=== PATIENT | male | born 1985 | race Caucasian/White ===

== ENCOUNTER 2024-11-05 15:00 | Emergency (ER) | payer BC, SELFPAY ==
--- OUTSIDE RECORDS SUMMARY | 2024-11-05 15:07 | XMS_ITS | Referral Summary ---
Author Organization [facility] Address [address] [place] [address] Care Team Providers Care Ic Designer Gate Arrays Name Role Phone Arturo Hendrix MD Primary Care Provider [phone] Allergies No known active allergies Medications blood glucose diagnostic (TRUE METRIX GLUCOSE TEST STRIP) strip check fingerstick daily 1 6 7 Active blood-glucose meter (TRUE METRIX GLUCOSE METER) misc check fingerstick daily 1 0 7 Active lancets (LANCETS,THIN) 28 gauge misc check fingerstick daily 1 6 7 Active hydrOXYzine (ATARAX) 25 mg tabletIndicati ons:anxiety Take 1 tablet (25 mg total) by mouth 3 (three) times a day as needed for anxiety. 90 tablet 3 7 Active lisinopril-hyd roCHLOROthiazi de (PRINZIDE,ZEST ORETIC) 20-12.5 mg per tablet TAKE 1 TABLET BY MOUTH EVERY DAY 90 tablet 1 7 Active baclofen (LIORESAL) 10 mg tablet 7 Active traZODone (DESYREL) 50 mg tabletIndicati ons:insomnia associated with depression TAKE 1 TABLET (50 MG TOTAL) BY MOUTH NIGHTLY. 30 tablet 8 Active traMADol (ULTRAM) 50 mg tabletIndicati ons:Neck pain TAKE 1 TABLET BY MOUTH 3 TIMES A DAY NEEDED FOR PAIN 60 tablet 8 Active busPIRone (BUSPAR) 10 mg tabletIndicati ons:Generalize d Anxiety Disorder TAKE 1 TABLET (10 MG TOTAL) BY MOUTH 2 (TWO) TIMES A DAY. 60 tablet 1 8 Active naproxen (NAPROSYN) 500 mg tablet Take 1 tablet (500 mg total) by mouth 2 (two) times a day with meals P.r.n. pain. Take with food. Collaborating physician Alessandro Rogers MD 20 tablet 2 Active acetaminophen- codeine (TYLENOL with CODEINE #3) 300-30 mg per tablet Take 1 tablet by mouth every 6 (six) hours as needed for pain P.r.n. pain not relieved by naproxen alone. Take with food. Collaborating physician Alessandro Rogers MD 15 tablet 2 Active pseudoephedrin e (SUDAFED) 30 mg tabletIndicati ons:Nasal Congestion Take 1 tablet (30 mg total) by mouth every 4 (four) hours as needed for congestion Collaborating physician Alessandro Rogers MD 15 tablet 2 Active HYDROcodone-ac etaminophen (NORCO) 5-325 mg per tabletIndicati ons:Pain Take 1-2 tablets by mouth every 4 (four) hours as needed for pain Do not exceed 8 tablets/day. 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 Overview (08/10/2016): Adhesive capsulitis of shoulder Sprain of shoulder and upper arm 07/31/2014 Overview (08/10/2016): Sprain of shoulder and upper arm Hypertension 04/27/2014 Overview (08/10/2016): Hypertension Adiposity 04/27/2014 Overview (08/10/2016): Obesity Hypersomnia with sleep apnea 01/09/2013 Overview (08/11/2016): Hypersomnia with sleep apnea Insomnia 01/09/2013 Overview (08/11/2016): Insomnia Obstructive sleep apnea syndrome 01/09/2013 Overview (08/12/2016): Obstructive sleep apnea syndrome Morbid obesity 01/09/2013 Overview (08/12/2016): Morbid obesity Immunizations Immunization Administration Dates Next Due Influenza, Unspecified 03/23/2017(Deferr ed: Patient Refused),05/16/2016(Deferred: Patient Refused),05/07/2016(Deferred: Patient Refused) Social History Tobacco Use Types Packs/Day Years Used Date Smoking Tobacco: Never Smokeless Tobacco: Never Alcohol Use Standard Drinks/Week Comments No 0 (1 standard drink = 0.6 oz pur e alcohol) Personal Safety Answer Date Recorded Have you ever been in or are you currently in a harmful physical or emotional relationship or is someone making you feel afraid or unsafe? 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 Gender Identity Not on file Sexual Orientation Not on file Last Filed Vital Signs Vital Sign Reading Time Taken Comments Blood Pressure 139/91 07/26/2022 3:19 PM CDT Pulse 105 07/26/2022 3:19 PM CDT Temperature 36.7 C (98 F) 07/26/2022 1:01 PM CDT Respiratory Rate 16 07/26/2022 3:19 PM CDT Oxygen Saturation 99% 07/26/2022 3:19 PM CDT Inhaled Oxygen Concentration - - Weight 108.9 kg (240 lb) 07/26/2022 1:01 PM CDT Height 188 cm (6' 2) 07/26/2022 1:01 PM CDT Body Mass Index 30.81 07/26/2022 1:01 PM CDT Plan of Treatment Not on file Insurance [facility] [employer] Care Teams Ic Designer Gate Arrays Relationship Specialty Start Date End Date [place] [address] PCP - General 08/04/16
--- OUTSIDE RECORDS SUMMARY | 2024-11-05 15:07 | XMS_ITS | Clinical Summary ---
Author Organization [facility] Address [address] [place] [address] Care Team Providers Care Junior Accountant Bookkeeper Name Role Phone Arturo Hendrix MD Primary Care Provider [phone] Allergies No known active allergies Medications blood [...] ed: Patient Refused),05/16/2016(Deferred: Patient Refused),05/07/2016(Deferred: Patient Refused) Surgical History Surgery Date Site/Laterality Comments SHOULDER ARTHROSCOPY 05/07/2012 - 05/06/2013 Left Arthroscopy shoulder OTHER SURGICAL HISTORY Left L shoulder arthroscopic lysis of adhesions OTHER SURGICAL HISTORY Arthroscopic distal clavicle excison, biceps tenodesis OTHER SURGICAL HISTORY Spurs in shoulder OTHER SURGICAL HISTORY bicep manipulation SHOULDER SURGERY 12/05/2016 - 01/04/2017 Left Medical History Medical History Date Comments Hypertension Hypertension Hx Other Medical Headache, migra ine Hx Other Medical 12/28/2012 obstructive sle ep apnea syndrome; Comments: [facility] 04/27/2014 - Hypertension Hypertension Sleep apnea Sleep apnea Family History Medical History Relation Name Comments Other Brother 2 Alive and well; Hypertension Father Hypertension; Hypertension Father's Brother Hypertensio n; Car Accident Mother MVA; Cause of D eath: MVA Cancer Other 1 Family history of Cancer; Diabetes Other 2 Family history of Diabetes mellitus; Hypertension Other 3 Family history of Hypertension; Stroke Other 4 Family history of Stroke; Diabetes Paternal Grandfather Diabete s mellitus; Hypertension Paternal Grandfather Hyperte nsion; Relation Name Status Comments Brother 1 Alive Brother 2 Father Father's Brother Mother (Age 19) Other 1 Other 2 Other 3 Other 4 Paternal Grandfather Social History Tobacco Use Types Packs/Day Years [...] on file 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 Gender Identity Not on file Sexual Orientation Not on file Obstetrics History Last Filed Vital Signs Vital Sign Reading [...] 07/26/2022 1:01 PM CDT Plan of Treatment Health Maintenance Due Date Last Done Comments Hepatitis C Screening 1985 DTaP/Tdap/Td Vaccine (1 - Tdap) 1996 Varicella Vaccines (1 of 2 - 13+ 2-dose series) 1998 Hepatitis B Screening 10/01/2003 Regular Well Visit/Exam 18-64 10/01/2003 Depression Screening 03/16/2018 03/16/2017, 02/16/2017 HPV Vaccines Aged Out No longer eligi ble based on patient's age to complete this topic Influenza Vaccine Discontinued Pneumococcal vaccine <65 Aged Out No longer eligible based on patient's age to complete this topic Insurance [facility] [employer] Care Teams Junior Accountant Bookkeeper Relationship Specialty Start Date End Date Arturo Hendrix MD [address] [place] [address] PCP - General 08/04/16
--- OUTSIDE RECORDS SUMMARY | 2024-11-05 15:07 | XMS_ITS | Clinical Summary ---
Author Organization [facility] Address [address] [place] [address] Phone Care Team Providers Care Scientific Helper Name Role Phone Wellington Leroy Primary Care Provider [phone] Allergies No known active allergies Medications gabapentin (NEURONTIN) 300 MG Capsule Take 300 mg by mouth as needed. 1 Active traMADol (ULTRAM) 50 MG Tablet Take 50 mg by mouth as needed. 1 Active methylPREDNISol one (Medrol) 4 MG Tablet Therapy PackIndications :Facial swelling Use as per instructions on package. 21 Tablet 1 Active Active Problems No known active problems Social History Tobacco Use Types Packs/Day Years Used Date Smoking Tobacco: Never Smokeless Tobacco: Never Alcohol Use Standard Drinks/Week Comments Yes 0 (1 standard drink = 0.6 oz pur e alcohol) Moderate use Sex and Gender Information Value Date Recorded Sex Assigned at Not on file Legal Sex Male 8:09 PM CDT Gender Identity Not on file Sexual Orientation Not on file Last Filed Vital Signs Vital Sign Reading Time Taken Comments Blood Pressure 138/82 02/04/2021 1:25 PM CDT Pulse 94 02/04/2021 1:25 PM CDT Temperature 36.1 C (97 F) 02/04/2021 1:25 PM CDT Respiratory Rate 16 02/04/2021 1:25 PM CDT Oxygen Saturation 97% 02/04/2021 1:25 PM CDT Inhaled Oxygen Concentration - - Weight 113.4 kg (250 lb) 02/04/2021 1:25 PM CDT Height 188 cm (6' 2) 02/04/2021 1:25 PM CDT Body Mass Index 32.1 02/04/2021 1:25 PM CDT Plan of Treatment Health Maintenance Due Date Last Done Comments Hepatitis C Virus (HCV) Screening 1985 TdaP Immunization 1985 Hepatitis B Immunization (1 of 3 - 19+ 3-dose series) 2004 Influenza Immunization (#1) 2024 SARS-COV-2 Immunization ( - 2023- season) 2024 Respiratory Syncytial Virus (RSV) Immunization (Adult) (1 - 1-dose 75+ series) 2060 Meningococcal Immunization (ACWY) Aged Out No longer eligible based on patient's age to complete this topic Pneumococcal Immunization Combined Aged Out No longer eligible based on patient's age to complete this topic Rotavirus Immunization Aged Out No lo nger eligible based on patient's age to complete this topic Care Teams Scientific Helper Relationship Specialty Start Date End Date Wellington Leroy PAC [address] [place] [address] PCP - General Physician Child Specialist 02/04/21
[2024-11-05 15:10] VITALS: BP 137/95; PULSE 109; RESP 16; TEMP 36.7; O2SAT 98
--- NOTE | 2024-11-05 15:38 | ED_ITS ---
HPI - General Adult General Chief complaint: Extremity Injury, Lower Stated complaint: left foot swollen Time Seen by Provider: 11/05/24 15:21 Source: patient and RN notes reviewed Mode of arrival: ambulatory Limitations: no limitations History of Present Illness HPI narrative: patient presents today complaining of left foot redness, swelling, and pain. States symptoms were present last week for 2-3 days, resolved with elevation and ice, then returned again 2 days ago. Denies injury or trauma. Report tingling to the bilateral feet at baseline, but no worse than normal. Currently rates his pain 4/10 at rest, which increases with standing or walking. Patient states he walks most of the day in steel-toed boots that come to mid dobson. Related Data Home Medications ?Medication ?Instructions ?Recorded ?Confirmed ?Last Taken ?Type metformin 11/05/24 Unknown History Allergies Allergy/AdvReac Type Severity Reaction Status Date / Time No Known Allergies Allergy Verified 11/05/24 15:11 [facility] Comments At time of signature, I have reviewed and agree with nursing past medical, surgical, social and family history unless otherwise noted. Please see nursing chart for further information. There is no relevant family history pertinent to the presenting complaint Exam Narrative: GENERAL: Well-appearing, well-nourished, and in no acute distress. HEAD: Normocephalic, atraumatic. EYES: EOMI. No redness or drainage. Conjunctivae normal. ENT: Mucous membranes pink and moist. NECK: Normal AROM. CHEST: No respiratory distress. EXTREMITIES: Left foot: Large area of erythema to the dorsum of the foot. Toes, foot, and ankle are moderately edematous. Foot and toes are nontender with decreased sensation, which patient states is baseline for him. Ankle is tender to palpation. Capillary refill normal. Pedal pulse is strong. Decreased range of motion of the ankle due to swelling. No wounds to the foot. Patient has a scabbed wound to the proximal anterior dobson, but states that is chronic and he has been picking at it. There is not much surrounding erythema, no induration or fluctuance noted. SKIN: Warm, dry, no rash. Capillary refill normal. Normal skin turgor. NEURO: No focal deficits. Alert and oriented x3. Gait steady. PSYCH: Normal affect. No signs of depression or anxiety. Course Course Level of Care: Express Care Visit Vital Signs Vital signs: Vital Signs Temperature 98.1 F 11/05/24 15:10 Pulse Rate 109 H 11/05/24 15:10 Respiratory Rate 16 11/05/24 15:10 Blood Pressure 137/95 H 11/05/24 15:10 Pulse Oximetry 98 11/05/24 15:10 Oxygen Delivery Room Air 11/05/24 15:10 Temperature 98.1 F 11/05/24 15:10 Pulse Rate 109 H 11/05/24 15:10 Respiratory Rate 16 11/05/24 15:10 Blood Pressure 137/95 H 11/05/24 15:10 Pulse Oximetry 98 11/05/24 15:10 Oxygen Delivery Room Air 11/05/24 15:10 Reviewed Transfer Transfered to: [facility] Transportation: Other (Private vehicle) Transfer rationale: Left foot redness, swelling Accepting physician: Chavez. Report given to SAURAV Abdi Medical Decision Making MDM Narrative Medical decision making narrative: Patient is a pleasant 39-year-old man with redness, swelling to the left foot and ankle without injury or trauma. Patient is prediabetic an on metformin. Small wound to the dobson without surrounding erythema, so this is the source of cellulitis is unlikely. He has no other wounds, no history of gout. At this t [facility], [facility]'s exam and symptoms, it is recommended that he be transferred to the ER for further evaluation of symptoms. Vital signs stable, but he does have some tachycardia at 109, possibly due to infection or pain. Patient requested transfer to [facility]. Differential Diagnosis Differential Diagnosis: Cellulitis, DVT, gout Vital Signs Vital Signs: Vital Signs Temperature 98.1 F 11/05/24 15:10 Pulse Rate 109 H 11/05/24 15:10 Respiratory Rate 16 11/05/24 15:10 Blood Pressure 137/95 H 11/05/24 15:10 Pulse Oximetry 98 11/05/24 15:10 Oxygen Delivery Room Air 11/05/24 15:10 Temperature 98.1 F 11/05/24 15:10 Pulse Rate 109 H 11/05/24 15:10 Respiratory Rate 16 11/05/24 15:10 Blood Pressure 137/95 H 11/05/24 15:10 Pulse Oximetry 98 11/05/24 15:10 Oxygen Delivery Room Air 11/05/24 15:10 Critical Care Time Critical Care Time Critical Care Time: No Discharge Plan Discharge Clinical Impression: Swelling of left foot Patient Disposition: Acute Care Hospital Condition: Stable Patient Language: German Prescriptions: No Action metformin Follow-up/Referrals: Rad,ANDRÉS Peacock [Primary Care Provider] - Time of Disposition: 15:44
== END 2024-11-05 15:45 | disposition short-term general hospital (02) ==
LOC: EXPBETH 15:05
PROVIDERS: Emergency Provider Nurse Practitioner; PCP Physician Assistant
DX: R22.42 Localized swelling, mass and lump, left lower limb (principal)
CPT/HCPCS: 99202; G0463